=== PATIENT | male | born 1940 | race African-American/Black ===

== ENCOUNTER 2016-09-29 15:18 | Emergency (ER) | payer BC, OTHER ==
[~2016-09-29] VITALS: Ht 182.9 cm; Wt 99.9 kg
[~2016-09-29 15:18] MED LIST: ALLO300T PO; ALLOPURINOL; ASPI-482 PO; CHOL10003 PO; DORZ10DR7 EACHEYE; GOUT MEDICATION; LISI2.5T PO; LISINOPRIL; SIMV20TA3 PO; SIMVASTATIN
[2016-09-29] MEDS ORDERED: CEPHALEXIN 250 MG CAPSULE PO ONE (16:45)
[2016-09-29 17:00] LABS: BILIRUBIN,URINE NEGATIVE (NEG); GLUCOSE,URINE NEGATIVE (NEG); NITRITE,URINE NEGATIVE (NEG); PH,URINE 5.5; PROTEIN,URINE NEGATIVE (NEG-TRACE); UROBILINOGEN,URINE 0.2 mg/dL (0.2 mg/dL)
[2016-09-29 17:11] LABS: BACTERIA,URINE FEW /HPF (0-FEW); RBC,URINE 0 /HPF (0-2); SQUAMOUS EPITHELIAL CELL,UR FEW /LPF
[2016-09-29 17:22] LABS: CALCIUM 9.5 mg/dL (8.5-10.1); CREATININE 1.6 mg/dL (0.7-1.3); GFR 51.2; POTASSIUM 4.2 mmol/L (3.5-5.1)
[2016-09-29 17:25] LABS: BASO % 1 % (0-3); EOS % 4 % (0-3); HEMATOCRIT 41.7 % (39.0-53.0); HEMOGLOBIN 13.2 g/dL (13.0-17.5); LYMPH # 1.5 x10^3/uL (1.0-4.8); LYMPH % 24 % (24-48); MEAN CORPUSCULAR HEMOGLOBIN 28 pg (25-35); MEAN CORPUSCULAR HGB CONC 32 g/dL (31-37); MEAN CORPUSCULAR VOLUME 88 fL (79-100); MONO % 6 % (0-9); NEUT % 65 % (31-73); PLATELET COUNT 160 x10^3/uL (140-400); RED BLOOD COUNT 4.75 x10^6/uL (4.30-5.70); RED CELL DISTRIBUTION WIDTH 16.6 % (11.5-14.5); WHITE BLOOD COUNT 6.3 x10^3/uL (4.0-11.0)
[2016-09-29 17:27] LABS: ALBUMIN 3.5 g/dL (3.4-5.0); TOTAL BILIRUBIN 1.2 mg/dL (0.2-1.0); TOTAL PROTEIN 7.1 g/dL (6.4-8.2)
[2016-09-29 17:48] VITALS: BP 128/60
[2016-09-29] MEDS ORDERED: CEPH500T PO (18:56)
--- NOTE | 2016-09-29 18:57 | PHYS DOC ---
Past Medical History Past Medical History: High Cholesterol, Hypertension, Other Additional Past Medical Histor: GOUT, PROSTATE CANCER Past Surgical History: Other Additional Past Surgical Histo: PROSTATE Alcohol Use: None Drug Use: None Adult General Chief Complaint Chief Complaint: LOWER EXTREMITY SWELLING HPI HPI Patient is a 75 year old male who presents with bilateral lower extremity swelling. Patient reports his legs have been swollen for the past week. He also has a couple small wound to the left lower extremity that abdomen weeping today. He is unsure if he was bitten by an insect; he did not see any insects. No fever. No chest discomfort, no shortness of breath. He has not taken anything for symptoms. He denies taking any diuretics. Review of Systems Review of Systems Constitutional: Denies fever or chills Eyes: Denies change in visual acuity or eye pain HENT: Denies nasal congestion or sore throat Respiratory: Denies cough or shortness of breath Cardiovascular: Denies chest pain GI: Denies abdominal pain, nausea, vomiting, bloody stools or diarrhea : Denies dysuria or hematuria Musculoskeletal: BLE swelling Integument: Denies rash or skin lesions Neurologic: Denies headache, focal weakness or sensory changes Current Medications Current Medications Current Medications Medications (Trade) Dose Ordered Sig/Sid Start Time Stop Time Status Last Admin Dose Admin Cephalexin HCl (Keflex) 500 mg 1X ONCE 09/29/16 16:45 09/29/16 16:46 DC 09/29/16 16:46 500 MG Furosemide (Lasix) 40 mg 1X ONCE 09/29/16 19:15 09/29/16 19:16 DC 09/29/16 19:02 40 MG Neomycin/ Polymyxin/ Bacitracin (Triple Antibiotic Ointment) 1 pkt 1X ONCE 09/29/16 19:15 09/29/16 19:16 DC 09/29/16 19:02 1 PKT Allergies Allergies Allergies Coded Allergies Type Severity Reaction Last Updated Verified No Known Drug Allergies 09/29/16 No Physical Exam Physical Exam Constitutional: Well developed, well nourished, no acute distress, non-toxic appearance HENT: Normocephalic, atraumatic, bilateral external ears normal Eyes: EOMI, conjunctiva normal, no discharge Neck: Normal range of motion, no stridor Cardiovascular: Heart rate normal, regular rhythm, no murmur Lungs & Thorax: Bilateral breath sounds clear to auscultation Abdomen: Bowel sounds normal, soft, non-distended, no TTP Skin: Warm, dry, no erythema, no rash Extremities: BLE 2+ pitting edema. Small superficial wounds to anterior LLE mid- bullard and medial ankle without surrounding erythema; no fluctuance or induration ; discharge is serous; 1+ radial pulse b/l; motor function and sensation to light touch intact Neurologic: Alert and oriented X 3, no gross deficits noted Current Patient Data Vital Signs Vital Signs Date Time Temp Pulse Resp B/P Pulse Ox O2 Delivery O2 Flow Rate FiO2 09/29/16 17:48 64 128/60 99 Room Air 09/29/16 15:41 97.8 20 97.8 Lab Values Laboratory Tests Test 09/29/16 16:35 09/29/16 17:00 Urine Collection Type Unknown Urine Color Yellow Urine Clarity Clear Urine pH 5.5 Urine Specific [place] 1.020 Urine Protein Negativemg/dL (NEG-TRACE) Urine Glucose (UA) Negativemg/dL (NEG) Urine Ketones (Stick) Negativemg/dL (NEG) Urine Blood Small (NEG) Urine Nitrite Negative (NEG) Urine Bilirubin Negative (NEG) Urine Urobilinogen Dipstick 0.2mg/dL (0.2 mg/dL) Urine Leukocyte Esterase Negative (NEG) Urine RBC 0/HPF (0-2) Urine WBC 1-4/HPF (0-4) Urine Squamous Epithelial Cells Few/LPF Urine Bacteria Few/HPF (0-FEW) Urine Mucus Slight/LPF White Blood Count 6.3x10^3/uL (4.0-11.0) Red Blood Count 4.75x10^6/uL (4.30-5.70) Hemoglobin 13.2g/dL (13.0-17.5) Hematocrit 41.7% (39.0-53.0) Mean Corpuscular Volume 88fL (79-100) Mean Corpuscular Hemoglobin 28pg (25-35) Mean Corpuscular Hemoglobin Concent 32g/dL (31-37) Red Cell Distribution Width 16.6% (11.5-14.5) H Platelet Count 160x10^3/uL (140-400) Neutrophils (%) (Auto) 65% (31-73) Lymphocytes (%) (Auto) 24% (24-48) Monocytes (%) (Auto) 6% (0-9) Eosinophils (%) (Auto) 4% (0-3) H Basophils (%) (Auto) 1% (0-3) Neutrophils # (Auto) 4.1x10^3uL (1.8-7.7) Lymphocytes # (Auto) 1.5x10^3/uL (1.0-4.8) Monocytes # (Auto) 0.4x10^3/uL (0.0-1.1) Eosinophils # (Auto) 0.3x10^3/uL (0.0-0.7) Basophils # (Auto) 0.0x10^3/uL (0.0-0.2) Sodium Level 142mmol/L (136-145) Potassium Level 4.2mmol/L (3.5-5.1) Chloride Level 105mmol/L (98-107) Carbon Dioxide Level 29mmol/L (21-32) Anion Gap 8 (6-14) Blood Urea Nitrogen 24mg/dL (8-26) Creatinine 1.6mg/dL (0.7-1.3) H Estimated GFR (Cockcroft-Gault) 51.2 BUN/Creatinine Ratio 15 (6-20) Glucose Level 96mg/dL (70-99) Calcium Level 9.5mg/dL (8.5-10.1) Total Bilirubin 1.2mg/dL (0.2-1.0) H Aspartate Amino Transferase (AST) 16U/L (15-37) Alanine Aminotransferase (ALT) 14U/L (16-63) L Alkaline Phosphatase 62U/L (46-116) AC-Fum-Q-Type Natriuretic Peptide 446pg/mL (0-449) Total Protein 7.1g/dL (6.4-8.2) Albumin 3.5g/dL (3.4-5.0) Albumin/Globulin Ratio 1.0 (1.0-1.7) Laboratory Tests 09/29/16 17:00 Laboratory Tests 09/29/16 17:00 EKG EKG [] Radiology/Procedures Radiology/Procedures CXR (my read): No acute abnormality Course & Med Decision Making Course & Med Decision Making Pertinent Labs and Imaging studies reviewed. (See chart for details) Patient is 75-year-old male who presents with bilateral lower extremity swelling. Wounds on left lower extremity do not appear infected, appear to be weeping serous fluid due to the edema. However, I am concerned about the possibility that they may become infected, so dose of Keflex ordered while in ED. Will check labs to evaluate for heart failure, renal disease, liver disease. Chest x-ray ordered as well. Labs largely unremarkable. BNP within normal limits, although at upper range of normal limits. Albumin normal. Creatinine 1.6, better than prior values. No significant pulmonary edema noted on chest x-ray. Discussed results with patient. Will give dose of Lasix while in the emergency department. Will discharge home with prescription for Keflex, instructions for close follow-up with PCP, return precautions. Dragon Disclaimer Dragon Disclaimer This electronic medical record was generated, in whole or in part, using a voice recognition dictation system. Departure Departure Impression: Primary Impression: Peripheral edema Disposition: HOME, SELF-CARE Condition: STABLE Referrals: JOSE RAMON SHARIF (PCP) Patient Instructions: Peripheral Edema Additional Instructions: Thank you for allowing us to provide care today in the Emergency Department. Take the provided medication as directed. Schedule a follow up appointment with your primary care doctor as soon as possible. Return promptly to the Emergency Department if you develop any new or concerning symptoms. Scripts Cephalexin 500 Mg Tablet1 Tab PO BID #14 TAB Prov:ASA LACY MD 09/29/16 ASA LACY MD Sep 29, 2016 18:56
[2016-09-29] MEDS ORDERED: NEOMY/BACITR/POLYMYXIN OINT PACKET. TP ONE (19:15)
[2016-09-29] MEDS ORDERED: FUROSEMIDE 40 MG/4 ML VIAL IVP ONE (19:15)
--- NOTE | 2016-09-30 06:42 | EKG ---
[facility] [address] [place] [id number] Test Date: 2016-09-29 Test Time: 16:44:00 Pat Name: EVELYN BROCK Department: Room: Gender: M Welfare Interviewer: : 1940 Requested By: ASA LACY Order Number: [id number] Reading MD: Measurements Intervals [place] Rate: 55 P: 42 WV: 168 QRS: -10 QRSD: 82 T: 15 QT: 430 QTc: 413 Interpretive Statements SINUS RHYTHM LEFTWARD AXIS QRS(T) CONTOUR ABNORMALITY CONSISTENT WITH ANTEROSEPTAL INFARCT AGE UNDETERMINED RI6.01 Unconfirmed report No previous ECG available for comparison
--- NOTE | 2016-09-30 08:48 | RAD ---
Chest, 2 views, 09/29/2016: History: Lower extremity edema Comparison is made to a study from 06/12/2016. The left ventricle is mildly enlarged. There is calcific plaquing of the aorta. The pulmonary vascularity is normal. No pulmonary infiltrates are seen. There is no evidence of pleural fluid. Mild spurring is present in the spine. IMPRESSION: 1. Left ventricular prominence and aortic atherosclerosis. 2. No acute cardiopulmonary abnormality is detected.
== END 2016-09-29 19:25 | disposition home or self-care (01) ==
LOC: ER 15:18
DX: R60.0 Localized edema (principal); E78.00 Pure hypercholesterolemia, unspecified; I10 Essential (primary) hypertension; M10.9 Gout, unspecified
CPT/HCPCS: 36415; 71020; 80053; 81001; 83880; 85027; 93005; 96374; 99285; J1940

== ENCOUNTER → 2018-10-26 | Outpatient (CLI) | payer BC ==
[~2018-10-26] MED LIST changes: +CEPH500T PO
[2018-10-26 12:15] LABS: CALCIUM 8.8 mg/dL (8.5-10.1); CREATININE 2.1 mg/dL (0.7-1.3); GFR 37.2; POTASSIUM 4.7 mmol/L (3.5-5.1)
== END | disposition home or self-care (01) ==
LOC: LAB 11:27
PROVIDERS: ATTEND Internal Medicine Nephrology
DX: I12.9 Hypertensive chronic kidney disease with stage 1 through stage 4 chronic kidney disease, or unspecified chronic kidney disease (principal); N18.3 Chronic kidney disease, stage 3 (moderate); N17.9 Acute kidney failure, unspecified; M10.9 Gout, unspecified; E11.22 Type 2 diabetes mellitus with diabetic chronic kidney disease; I48.91 Unspecified atrial fibrillation; Z68.30 Body mass index [BMI] 30.0-30.9, adult; Z79.4 Long term (current) use of insulin
CPT/HCPCS: 36415; 80048

== ENCOUNTER → 2019-01-03 | Outpatient (CLI) | payer BC ==
[2019-01-03 12:46] LABS: MAGNESIUM 2.2 mg/dL (1.8-2.4); URIC ACID 5.5 mg/dL (3.5-7.2)
[2019-01-03 20:07] LABS: CALCIUM PTH 9.1 mg/dL (8.6-10.2); CREATININE PTH 1.99 mg/dL (0.76-1.27); PHOSPHORUS PTH 3.8 mg/dL (2.5-4.5); PTH INTACT 68 pg/mL (15-65)
[2019-01-03 22:08] LABS: CREAT RD UR 162.1 mg/dL (Not Estab.); MICRO CREAT RATIO <1.9 mg/g creat (0.0-30.0); MICROALB RD UR <3.0 ug/mL (Not Estab.)
== END | disposition home or self-care (01) ==
LOC: LAB 11:57
PROVIDERS: ATTEND Internal Medicine Nephrology
DX: N17.9 Acute kidney failure, unspecified (principal); I12.9 Hypertensive chronic kidney disease with stage 1 through stage 4 chronic kidney disease, or unspecified chronic kidney disease; E11.22 Type 2 diabetes mellitus with diabetic chronic kidney disease; N18.3 Chronic kidney disease, stage 3 (moderate); I48.91 Unspecified atrial fibrillation; M10.9 Gout, unspecified; Z68.30 Body mass index [BMI] 30.0-30.9, adult
CPT/HCPCS: 36415; 82043; 82306; 82570; 83735; 83970; 84550

== ENCOUNTER → 2019-07-20 | Outpatient (CLI) | payer BC ==
[~2019-07-20] MED LIST changes: +SIMV20TA18 PO; -SIMV20TA3 PO
[2019-07-20 09:24] LABS: HEMATOCRIT 41.4 % (39.0-53.0); HEMOGLOBIN 13.8 g/dL (13.0-17.5)
[2019-07-20 09:58] LABS: ALBUMIN 3.2 g/dL (3.4-5.0); CALCIUM 8.6 mg/dL (8.5-10.1); CREATININE 2.2 mg/dL (0.7-1.3); GFR 35.2; POTASSIUM 3.8 mmol/L (3.5-5.1)
== END | disposition home or self-care (01) ==
LOC: LAB 08:56
PROVIDERS: ATTEND Internal Medicine Nephrology
DX: N18.3 Chronic kidney disease, stage 3 (moderate) (principal); Z68.30 Body mass index [BMI] 30.0-30.9, adult
CPT/HCPCS: 36415; 80069; 85014; 85018